=== PATIENT | male | born 1995 | race African-American/Black ===

== ENCOUNTER 2018-05-17 19:30 | Emergency (ER) | payer OTHER ==
--- NOTE | 2018-05-17 22:57 | ER Document Report ---
HPI - HPI Patient complains to provider of: bilateral knee pain Time Seen by Provider: 05/17/18 20:50 Pain Level: 3 Context: 22-year-old male presents to the emergency department for bilateral knee pain. He states he started having problems when he was in the [employer] and he was hiking. Now he is a corrections of her knees always on his feet and last night she spontaneously had some constant grinding knee pain. He says he intermitten tly takes Motrin for it with minimal relief. He denies fevers, chills, nausea, vomiting - MUSCULOSKELETAL Musculoskeletal: REPORTS: Extremity pain - bilateral knee pain Past Medical History - Social History Smoking Status: Current Every Day Smoker Chew tobacco use (# tins/day): No Frequency of alcohol use: Social Drug Abuse: None Family History: None Patient has suicidal ideation: No Patient has homicidal ideation: No Renal/ Medical History: Denies: Hx Peritoneal Dialysis Vertical Provider Document - CONSTITUTIONAL Agree With Documented VS: Yes Notes: PHYSICAL EXAMINATION: Reviewed vital signs and charting by RN GENERAL: Alert, interacts well. No acute distress. HEAD: Normocephalic, atraumatic. EXTREMITIES: Moves all 4 extremities spontaneously. No edema, No cyanosis. Positive right patellar grind test. Pain with passive range of motion. No erythema no evidence of infection. BACK: no cervical, thoracic, lumbar midline tenderness. No saddle anesthesia, normal distal neurovascular exam. NEUROLOGICAL: Alert and oriented x3. Normal speech. PSYCH: Normal affect, normal mood. SKIN: Warm, dry, normal turgor. No rashes or lesions noted. - INFECTION CONTROL TRAVEL OUTSIDE OF THE [place] IN LAST 30 DAYS: No Course - Re-evaluation Re-evalutation: 05/17/18 22:54 Well-appearing 22-year-old male presents with chronic bilateral knee pain. No evidence of septic arthritis is patient has full range of motion he does not have a fever or any infectious symptoms. Physical exam was unremarkable other than for positive right patellar grind test. I told patient to take Motrin 600 every 6 hours and Tylenol 1000 mg every 6 hours as well. I will give him a referral to orthopedics. - Vital Signs Vital signs: Temp Pulse Resp BP Pulse Ox 98.9 F 101 H 16 117/56 L 100 05/17/18 19:41 05/17/18 19:41 05/17/18 19:41 05/17/18 19:41 05/17/18 19:41 Discharge - Discharge Clinical Impression: Knee pain, bilateral Qualifiers: Chronicity: chronic Qualified Code(s): M25.561 - Pain in right knee; M25.562 - Pain in left knee; G89.29 - Other chronic pain Condition: Good Disposition: HOME, SELF-CARE Additional Instructions: He was seen in the emergency department for knee pain. This sounds like it is chronic in nature and the best thing you can do is follow-up with orthopedics and plugged into physical therapy. Also reassess your work boots and see if those may be causing his symptoms. Please take Motrin 600 mg every 6 hours and Tylenol 1000 mg every 6 hours for pain and inflammation. If you develop any acute weakness or numbness in your arms or legs, develop high fever, redness or swelling in your knees with fever, or have any other concerning symptoms please return the emergency room Forms: Return to Work Referrals: JOCELYNE STEVENSON, [ACTIVE STAFF] - Follow up as needed
[2018-05-17 23:11] VITALS: BP 114/60
== END 2018-05-17 23:10 | disposition home or self-care (01) ==
LOC: ER 19:30
DX: G89.29 Other chronic pain (principal); M25.561 Pain in right knee; M25.562 Pain in left knee; F17.200 Nicotine dependence, unspecified, uncomplicated
CPT/HCPCS: 99283